=== PATIENT | female | born 1945 | race Two or more races ===

== ENCOUNTER 2021-02-24 10:53 | Inpatient (IN) | payer OTHER ==
[~2021-02-24] VITALS: Ht 157.5 cm; Wt 50.8 kg
[2021-02-24] MEDS ORDERED: COZAAR50 MG PO (12:25)
[2021-02-27] MEDS ORDERED: DONEPEZIL HCL10 MG (11:55)
[2021-02-27] MEDS ORDERED: CLONAZEPAM1 MG (11:55)
[2021-02-27] MEDS ORDERED: LORAZEPAM1 MG (11:55)
[2021-02-27] MEDS ORDERED: OLANZAPINE15 MG (11:55)
[2021-02-27] MEDS ORDERED: RESTORIL15 MG (11:56)
== END 2021-03-01 10:43 | disposition home or self-care (01) | DRG 689 ==
LOC: ER 10:53 → SURH 02-25 10:09 → MEDJ 02-27 17:46
PROVIDERS: ADMIT Internal Medicine; ATTEND Internal Medicine
PROC: BW28ZZZ Computerized Tomography (CT Scan) of Head (ICD-10-PCS; principal; 2021-02-24)
PROC: B030Y0Z Magnetic Resonance Imaging (MRI) of Brain using Other Contrast, Unenhanced and Enhanced (ICD-10-PCS; 2021-02-27)
DX: N39.0 Urinary tract infection, site not specified (principal); I62.03 Nontraumatic chronic subdural hemorrhage; E87.1 Hypo-osmolality and hyponatremia; E86.0 Dehydration; D64.9 Anemia, unspecified; D69.6 Thrombocytopenia, unspecified; I10 Essential (primary) hypertension; G30.9 Alzheimer's disease, unspecified; F02.80 Dementia in other diseases classified elsewhere, unspecified severity, without behavioral disturbance, psychotic disturbance, mood disturbance, and anxiety; Z20.822 Contact with and (suspected) exposure to COVID-19; W19.XXXA Unspecified fall, initial encounter; Y93.89 Activity, other specified; Y92.89 Other specified places as the place of occurrence of the external cause; Y99.8 Other external cause status
CPT/HCPCS: 70553

== ENCOUNTER 2021-03-13 11:58 | Emergency (ER) | payer OTHER ==
[~2021-03-13] VITALS: Ht 157.5 cm; Wt 49.9 kg
[~2021-03-13 11:58] MED LIST: CLONAZEPAM1 MG; COZAAR50 MG PO; DONEPEZIL HCL10 MG; LORAZEPAM1 MG; OLANZAPINE15 MG; RESTORIL15 MG
[2021-03-13] MEDS ORDERED: ORPHENADRINE C100 MG PO (16:34)
[2021-03-13] MEDS ORDERED: DICLOFENAC POTA50 MG PO (16:34)
== END 2021-03-13 16:46 | disposition home or self-care (01) ==
LOC: ER 11:58
DX: S00.81XA Abrasion of other part of head, initial encounter (principal); S33.5XXA Sprain of ligaments of lumbar spine, initial encounter; M54.2 Cervicalgia; W06.XXXA Fall from bed, initial encounter; Y93.89 Activity, other specified; Y92.013 Bedroom of single-family (private) house as the place of occurrence of the external cause; Y99.8 Other external cause status